=== PATIENT | male | born 1995 | race Caucasian/White ===

== ENCOUNTER 2021-05-08 14:18 | Inpatient (IN) | payer SELFPAY ==
[2021-05-08 14:31] VITALS: BP 133/89; PULSE 76; RESP 16; TEMP 36.9; O2SAT 97; BMI 25.7
--- NOTE | 2021-05-08 14:32 | ED_ITS ---
Documented by User: XIAO King 05/08/21 16:44 HPI - Psych General: Chief Complaint: Psychiatric Symptoms Stated Complaint: PSYCH EVAL Time Seen by Provider: 05/08/21 14:20 Source: patient and police Mode of arrival: other (police) Limitations: no limitations History of Present Illness: HPI Narrative: Patient is a 25-year-old male who presents to ED today after being brought by a precinct i police sergeant for concerns for suicidal ideation. bank compliance officer states he pulled patient over for speeding and he immediately fled. He eventually told the officer he wanted him to shoot him. He told the officer he was on his way to kill himself. During my examination patient has an extremely flat affect and stares at the ground during my entire exam. He tells me repeatedly that there is no reason to live. He states he had a plan to slit his wrists last night. He seems disinterested in any form of psychiatric help stating medications do not work and th erapy/counseling doesn't work because nobody actually fucking cares-they just get paid to act like they do . MD complaint: suicidal ideation Duration: constant History of same: Yes Relieving factors: none Exacerbating factors: none Associated psychiatric symptoms: depression and suicidal ideation Associated symptoms: Reports depression and suicidal ideation; Deny auditory hallucinations, visual hallucinations or homicidal ideation Treatments prior to arrival: placed on mental health hold (police filed affidavit ) If self harm: admits thoughts of self harm and has acted on plan Review of Systems Const: Denies: fever(s) or chills Card: Denies: chest pain, palpitations, lightheadedness or syncope Resp: Denies: dyspnea GI: Denies: abdominal pain, nausea, vomiting or diarrhea Skin/Breast: Denies: rash Neuro: Denies: headache(s) Psych: Reports: anxiety, depression, hopelessness, loss of interest and suicidal ideation; Denies: visual hallucinations, auditory hallucinations or homicidal ideation [facility] ED PFSH: Social History Smoking and tobacco status: current every day smoker cigarettes Packs smoked per day: 1 Alcohol intake: never Physical Exam Const: COMMON NORMALS: no acute distress and no limitations GENERAL APPEARANCE: cooperative ORIENTATION/CONSCIOUSNESS: Yes awake, Yes oriented to person, Yes oriented to place and Yes oriented to time Neuro: SENSORIUM/ORIENTATION: Yes oriented to person, Yes oriented to place and Yes oriented to time Psych: COMMON NORMALS: mental status grossly normal, cooperative, speech normal, denies hallucinations and denies homicidal ideation APPEARANCE: Yes grossly normal ATTITUDE: Yes evasive ACTIVITY/MOTOR BEHAVIOR: Yes Avoids eye contact (attititude/behavior) SPEECH: Yes normal speech MOOD & AFFECT: Yes depressed mood and Yes Other affect and mood findings present (extremely flat affect ) THOUGHT CONTENT: Yes Normal thought content present and Yes Suicidality present ATTENTION/CONCENTRATION: Yes attention grossly intact and Yes concentration grossly intact MEMORY/COGNITION: Yes memory grossly intact and Yes cognition grossly intact INSIGHT: Fair insight present (Psych) JUDGEMENT: Fair judgement present (Psych) Course Consultations: Consultation #1: Dr. Jeong-accepts admission Vital Signs: Vital signs: Vital Signs Temperature 98.9 F 05/08/21 19:26 Pulse Rate 71 05/08/21 19:26 Respiratory Rate 20 H 05/08/21 19:26 Blood Pressure 118/83 05/08/21 19:26 Pulse Oximetry 99 05/08/21 19:26 MDM - Psych Lab Data: Labs: Lab Results 05/08/21 05/08/21 Range/Units 14:54 14:54 WBC 14.6 H (4.0-10.0) 10^3/ uL RBC 6.19 H (4.1-5.3) 10^6/u L Hgb 18.2 H (11.7-16.6) g/dL Hct 53.8 H (42.0-52.0) % MCV 86.9 (80-94) fl MCH 29.4 (28.0-34.0) pg MCHC 33.8 (30.0-36.0) g/dL RDW 12.0 L (12.1-15.1) % Plt Count 304 (130-400) 10^3/c mm MPV 9.9 (7.4-10.4) fL Neut % (Auto) 80.8 % Lymph % (Auto) 13.4 % [place] % (Auto) 4.7 % Eos % (Auto) 0.5 % Baso % (Auto) 0.3 % Neut # (Auto) 11.74 H (1.8-7.7) 10^3/u L Lymph # (Auto) 2.0 (0.8-4.8) 10^3/u L [place] # (Auto) 0.7 (0.2-0.9) 10^3/u L Eos # (Auto) 0.1 (0.0-0.8) 10^3/u L Baso # (Auto) 0.1 (0.0-0.1) 10^3/u L Nucleated RBC % (a uto) 0 % Nucleated RBCs # 0.0 /100WBC Sodium 141 (136-145) mmol/L Potassium 4.2 (3.5-5.1) mmol/L Chloride 103 (98-107) mmol/L Carbon Dioxide 26 (22-29) mmol/L Anion Gap 16.2 (5-19) BUN 13 (6-20) mg/dL Creatinine 0.8 (0.7-1.2) mg/dL GFR Calculation 116.9 (90-130) mL/min Glucose 97 (65-115) mg/dL Calculated Osmolal ity 292 (285-295) mOsm/k g Calcium 9.8 (8.5-10.5) mg/dL Total Bilirubin 0.5 (0.15-1.2) mg/dL AST 22 (0-40) U/L ALT 33 (0-41) U/L Alkaline Phosphata se 87 (40-130) IU/L Total Protein 8.0 (6.6-8.7) g/dL Albumin 4.8 (3.5-5.2) g/dL Globulin 3.2 (1.3-4.6) g/dL Salicylates < 0.3 L (3-10) mg/dL Acetaminophen < 5.0 L (10-30) ug/mL Ethyl Alcohol < 10 (0-10) mg/dL Discharge Plan Discharge Patient Disposition: Admitted As Inpatient Admit Provider: Ed Jeong Clinical Impression: Suicidal ideations, Involuntary commitment Condition: Stable Coding Level of Care Code ED Engraver Picture for Chg Fwd Exam Expanded Problem Focused Documented by User: Angel Tillman MD 05/08/21 20:57 HPI - Psych General: Chief Complaint: Psychiatric Symptoms Stated Complaint: PSYCH EVAL Time Seen by Provider: 05/08/21 14:20 PFSH ED PFSH: Social History Smoking and tobacco status: current every day smoker cigarettes Packs smoked per day: 1 Alcohol intake: never Course Vital Signs: Vital signs: Vital Signs Temperature 98.9 F 05/08/21 19:26 Pulse Rate 71 05/08/21 19:26 Respiratory Rate 20 H 05/08/21 19:26 Blood Pressure 118/83 05/08/21 19:26 Pulse Oximetry 99 05/08/21 19:26 MDM - Psych Lab Data: Labs: Lab Results 05/08/21 05/08/21 Range/Units 14:54 14:54 WBC 14.6 H (4.0-10.0) 10^3/ uL RBC 6.19 H (4.1-5.3) 10^6/u L Hgb 18.2 H (11.7-16.6) g/dL Hct 53.8 H (42.0-52.0) % MCV 86.9 (80-94) fl MCH 29.4 (28.0-34.0) pg MCHC 33.8 (30.0-36.0) g/dL RDW 12.0 L (12.1-15.1) % Plt Count 304 (130-400) 10^3/c mm MPV 9.9 (7.4-10.4) fL Neut % (Auto) 80.8 % Lymph % (Auto) 13.4 % [place] % (Auto) 4.7 % Eos % (Auto) 0.5 % Baso % (Auto) 0.3 % Neut # (Auto) 11.74 H (1.8-7.7) 10^3/u L Lymph # (Auto) 2.0 (0.8-4.8) 10^3/u L [place] # (Auto) 0.7 (0.2-0.9) 10^3/u L Eos # (Auto) 0.1 (0.0-0.8) 10^3/u L Baso # (Auto) 0.1 (0.0-0.1) 10^3/u L Nucleated RBC % (a uto) 0 % Nucleated RBCs # 0.0 /100WBC Sodium 141 (136-145) mmol/L Potassium 4.2 (3.5-5.1) mmol/L Chloride 103 (98-107) mmol/L Carbon Dioxide 26 (22-29) mmol/L Anion Gap 16.2 (5-19) BUN 13 (6-20) mg/dL Creatinine 0.8 (0.7-1.2) mg/dL GFR Calculation 116.9 (90-130) mL/min Glucose 97 (65-115) mg/dL Calculated Osmolal ity 292 (285-295) mOsm/k g Calcium 9.8 (8.5-10.5) mg/dL Total Bilirubin 0.5 (0.15-1.2) mg/dL AST 22 (0-40) U/L ALT 33 (0-41) U/L Alkaline Phosphata se 87 (40-130) IU/L Total Protein 8.0 (6.6-8.7) g/dL Albumin 4.8 (3.5-5.2) g/dL Globulin 3.2 (1.3-4.6) g/dL Salicylates < 0.3 L (3-10) mg/dL Acetaminophen < 5.0 L (10-30) ug/mL Ethyl Alcohol < 10 (0-10) mg/dL Discharge Plan Discharge Patient Disposition: Admitted As Inpatient Admit Provider: Ed Jeong Clinical Impression: Suicidal ideations, Involuntary commitment Condition: Stable Coding Level of Care Code ED Engraver Picture for Chg Fwd Exam Expanded Problem Focused
[2021-05-08 14:41] VITALS: BP 137/67; PULSE 76; RESP 18; O2SAT 97
[2021-05-08 15:03] LABS: Basophils # 0.1 10^3/uL (0.0-0.1); Basophils % 0.3 %; Eosinophils # 0.1 10^3/uL (0.0-0.8); Eosinophils % 0.5 %; Hematocrit 53.8 % (42.0-52.0); Hemoglobin 18.2 g/dL (11.7-16.6); Lymphocytes % 13.4 %; Mean Corpuscular HGB Conc 33.8 g/dL (30.0-36.0); Mean Corpuscular Hemoglobin 29.4 pg (28.0-34.0); Mean Corpuscular Volume 86.9 fl (80-94); Mean Platelet Volume 9.9 fL (7.4-10.4); Monocytes # 0.7 10^3/uL (0.2-0.9); Monocytes % 4.7 %; Neutrophils # 11.74 10^3/uL (1.8-7.7); Neutrophils % 80.8 %; Nucleated Red Blood Cells % 0 %; Platelet Count 304 10^3/cmm (130-400); Red Blood Count 6.19 10^6/uL (4.1-5.3); White Blood Count 14.6 10^3/uL (4.0-10.0)
[2021-05-08 15:52] LABS: Alanine Aminotransferase 33 U/L (0-41); Albumin Level 4.8 g/dL (3.5-5.2); Alkaline Phosphatase 87 IU/L (40-130); Aspartate Amino Transferase 22 U/L (0-40); Blood Urea Nitrogen 13 mg/dL (6-20); Calcium 9.8 mg/dL (8.5-10.5); Carbon Dioxide 26 mmol/L (22-29); Chloride 103 mmol/L (98-107); Globulin 3.2 g/dL (1.3-4.6); Glomerular Filtration Rate 116.9 mL/min (90-130); Glucose 97 mg/dL (65-115); Osmolality Calculated 292 mOsm/kg (285-295); Sodium 141 mmol/L (136-145); Total Bilirubin 0.5 mg/dL (0.15-1.2)
[2021-05-08 16:08] LABS: Acetaminophen < 5.0 ug/mL (10-30); Alcohol Level < 10 mg/dL (0-10); Anion Gap 16.2 (5-19); Potassium 4.2 mmol/L (3.5-5.1); Salicylate < 0.3 mg/dL (3-10)
[2021-05-08 19:26] VITALS: BP 118/83; PULSE 71; RESP 20; TEMP 37.2; O2SAT 99
[2021-05-08] MEDS: acetaminophen 325 mg Tablet 650 MG PO (21:51)
[2021-05-08] MEDS: hyDROXYzine 25 mg Capsule 50 MG PO (21:51)
[2021-05-08] MEDS: trazodone 50 mg Tablet PO (21:51)
[2021-05-08 22:00] VITALS: BP 118/83; PULSE 71; RESP 20; TEMP 37.2; O2SAT 99
[2021-05-09 05:22] LABS: Basophils # 0.1 10^3/uL (0.0-0.1); Basophils % 0.7 %; Eosinophils # 0.3 10^3/uL (0.0-0.8); Eosinophils % 2.9 %; Hematocrit 52.2 % (42.0-52.0); Hemoglobin 17.4 g/dL (11.7-16.6); Lymphocytes # 3.8 10^3/uL (0.8-4.8); Lymphocytes % 40.1 %; Mean Corpuscular HGB Conc 33.3 g/dL (30.0-36.0); Mean Corpuscular Hemoglobin 29.9 pg (28.0-34.0); Mean Corpuscular Volume 89.7 fl (80-94); Mean Platelet Volume 10.4 fL (7.4-10.4); Monocytes # 0.7 10^3/uL (0.2-0.9); Monocytes % 7.2 %; Neutrophils # 4.63 10^3/uL (1.8-7.7); Neutrophils % 48.9 %; Nucleated Red Blood Cells % 0 %; Platelet Count 289 10^3/cmm (130-400); Red Blood Count 5.82 10^6/uL (4.1-5.3); Red Cell Distribution Width 12.3 % (12.1-15.1); White Blood Count 9.5 10^3/uL (4.0-10.0)
[2021-05-09 05:45] LABS: Alanine Aminotransferase 31 U/L (0-41); Albumin Level 4.3 g/dL (3.5-5.2); Alkaline Phosphatase 86 IU/L (40-130); Anion Gap 15.7 (5-19); Aspartate Amino Transferase 21 U/L (0-40); Blood Urea Nitrogen 14 mg/dL (6-20); Calcium 9.5 mg/dL (8.5-10.5); Carbon Dioxide 27 mmol/L (22-29); Chloride 102 mmol/L (98-107); Globulin 3.2 g/dL (1.3-4.6); Glomerular Filtration Rate 136.3 mL/min (90-130); Glucose 78 mg/dL (65-115); Osmolality Calculated 291 mOsm/kg (285-295); Potassium 3.7 mmol/L (3.5-5.1); Sodium 141 mmol/L (136-145); Total Bilirubin 0.9 mg/dL (0.15-1.2); Total Protein 7.5 g/dL (6.6-8.7)
[2021-05-09 05:57] VITALS: BP 101/67; PULSE 73; RESP 17; TEMP 36.4; O2SAT 96
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
[2021-05-09 10:34] LABS: Amphetamines Screen Urine Negative (Negative); Barbiturates Screen Urine Negative (Negative); Benzodiazepines Screen Urine Negative (Negative); Cocaine Screen Urine Negative (Negative); Opiate Screen Urine Negative (Negative); PCP Screen Urine Negative (Negative); THC Screen Urine Positive (Negative)
[2021-05-09 14:00] VITALS: BP 103/56; PULSE 72; RESP 16; TEMP 36.2; O2SAT 95
[2021-05-09] MEDS: nicotine 2 mg Gum BUCCAL (20:14)
[2021-05-09 21:04] VITALS: BP 128/87; PULSE 78; RESP 17; TEMP 37.1; O2SAT 98
[2021-05-09] MEDS: hyDROXYzine 25 mg Capsule 50 MG PO (21:30)
[2021-05-09] MEDS: acetaminophen 325 mg Tablet 650 MG PO (21:31)
[2021-05-09] MEDS: trazodone 50 mg Tablet PO (21:31)
[2021-05-10 06:00] VITALS: BP 96/63; PULSE 58; RESP 17; TEMP 37; O2SAT 98
[2021-05-10] MEDS: nicotine 21 mg Patch 1 PATCH TRANSDERMA (11:35)
[2021-05-10 14:00] VITALS: BP 122/72; PULSE 90; RESP 17; TEMP 36.9; O2SAT 99
[2021-05-10] MEDS: buPROPion XL (24 HR) 150 mg Tablet PO (14:27)
[2021-05-10] MEDS: nicotine 2 mg Gum BUCCAL (14:52)
--- NOTE | 2021-05-10 15:29 | PM.NPN ---
Subjective NPU Subjective: Interval history: Clyde presents today reporting that he has nothing to live for and being quite nihilistic as he discusses his relationship with his children and his parents. He endorsed that he has met a lot of his life prior to his and seems feeling him and then his got so he her and that has turned out poorly as well. He can identify one remaining quality in life in general stating you work until you so why not just skip the work. We discussed the risk benefits and alternatives of initiating Wellbutrin and he understood and agreed proceed as documented in this note. Mental Status Exam MSE Comments: This is a well-nourished, well-developed, white male, with a full rangel with hospital scrubs on with adequate grooming, but limited eye contact, never looking in this casualty underwriter?s direction, staring out the window, with no abnormal movement except for psychomotor retardation. Mostly cooperative with exam in mild distress. Speech was decreased rate and volume. Mood described as depressed; affect congruent and stoic. Thought process, organized. Thought content: patient endorsed suicidal ideation, but denied homicidal ideation, there were no delusions reported or noted, patient denied any auditory or visual hallucinations. Attention and concentration appeared intact, and memory was reliable, but none were formally tested. He is alert and oriented times three. Insight and judgment are limited. Impulse control is limited. Vitals/I&O/Wt Last Vital Signs Temp 98.4 F 05/10/21 14:00 Pulse 90 05/10/21 14:00 Resp 17 05/10/21 14:00 BP 122/72 05/10/21 14:00 Pulse Ox 99 05/10/21 14:00 Weight last 48 hrs Weight 90.718 kg Data NPU : 05/09/21 04:19 05/09/21 04:19 A&P Additional A&P Information (1) Suicidal ideations: (2) Involuntary commitment: (3) Adjustment disorder with mixed disturbance of emotions and conduct: (4) Partner relational problem: Additional A&P Information This is a 25-year-old, white male, with partner relational problems, adjustment disorder with mixed disturbance of emotion and conduct, depression, who presents grieving the ending of his marriage with significant suicidal thinking. RECOMMENDATION AND PLAN: 1. Continue current medication. Initiate Wellbutrin XL 150 mg p.o. every morning. 2. Encourage individual, group, and milieu therapy. 3. Continue q-15 minute checks for safety. Involuntary Hold Information 96 Hour Hold: 96 Hour Involuntary Admission: Yes 96 Hour Hold Ending Date: 05/14/21 96 Hour Hold Ending Time: 00:01 Attestations NPU Medical Necessity Statement*: Inpatient hospitalization is medically necessary and the clinically appropriate intervention, at this time. We will monitor medications and make changes as indicated. Likely length of stay is three to five days. Coding Level of Care Code Acute Exceptional Student Education Aide for Romulo Santos
[2021-05-10 22:00] VITALS: BP 132/79; PULSE 86; RESP 17; TEMP 37.1; O2SAT 98
[2021-05-10] MEDS: acetaminophen 325 mg Tablet 650 MG PO (22:51)
[2021-05-11 06:00] VITALS: BP 98/61; PULSE 64; RESP 15; TEMP 36.6; O2SAT 99
[2021-05-11] MEDS: buPROPion XL (24 HR) 150 mg Tablet PO (10:21)
--- NOTE | 2021-05-11 12:48 | NPU.GN ---
[facility] Unit Group Topic: Two True one False General Mood of Group: Patient refused group for today.
[2021-05-11 14:00] VITALS: BP 111/75; PULSE 64; RESP 16; TEMP 37.1; O2SAT 98
[2021-05-11] MEDS: nicotine 2 mg Gum BUCCAL (15:51)
--- NOTE | 2021-05-11 17:11 | P.PN_ITS ---
Subjective NPU Subjective: Interval history: Patient presents today reporting that the Wellbutrin might be working. He did report that he is not sure if he like the way his head felt initially. But he reports that he is not feeling suicidal so I guess that is better, he reports. He reports that he is eating and sleeping okay and denies any new or pressing issues. Mental Status Exam MSE Comments: This is a well-nourished, well-developed, white male, with a full rangel with hospital scrubs on with adequate grooming, but limited eye contact. No abnormal movements except for psychomotor retardation, which is slightly improved. Mostly cooperative with exam in no acute distress. Speech was decreased rate and volume. Mood described as depressed, but maybe less so; affect congruent and less stoic. Thought process, organized. Thought content: patient did not report suicidal ideation, and denied homicidal ideation, there were no delusions reported or noted, patient denied any auditory or visual hallucinations. Attention and concentration appeared intact, and memory was reliable, but none were formally tested. He is alert and oriented times three. Insight and judgment are limited. Impulse control is limited. Vitals/I&O/Wt Last Vital Signs Temp 97.9 F 05/11/21 21:38 Pulse 74 05/11/21 21:38 Resp 16 05/11/21 21:38 BP 137/90 05/11/21 21:38 Pulse Ox 97 05/11/21 21:38 Data NPU : 05/09/21 04:19 05/09/21 04:19 A&P Additional A&P Information (1) Suicidal ideations: (2) Involuntary commitment: (3) Adjustment disorder with mixed disturbance of emotions and conduct: (4) Partner relational problem: Additional A&P Information This is a 25-year-old, white male, with partner relational problems, adjustment disorder with mixed disturbance of emotion and conduct, depression, who presents grieving the ending of his marriage with significant suicidal thinking. RECOMMENDATION AND PLAN: 1. Continue current medication. 2. Encourage individual, group, and milieu therapy. 3. Continue q-15 minute checks for safety. Involuntary Hold Information 96 Hour Hold: 96 Hour Involuntary Admission: Yes 96 Hour Hold Ending Date: 05/14/21 96 Hour Hold Ending Time: 00:01 Attestations NPU Medical Necessity Statement*: Inpatient hospitalization is medically necessary and the clinically appropriate intervention, at this time. We will monitor medications and make changes as indicated. Likely need to stay 2 to 4 days. Coding Level of Care Code Acute Contact Lens Fitter for Romulo Santos
[2021-05-11] MEDS: acetaminophen 325 mg Tablet 650 MG PO (18:19)
[2021-05-11 21:38] VITALS: BP 137/90; PULSE 74; RESP 16; TEMP 36.6; O2SAT 97
[2021-05-11] MEDS: trazodone 50 mg Tablet PO (23:35)
[2021-05-11] MEDS: hyDROXYzine 25 mg Capsule 50 MG PO (23:35)
--- NOTE | 2021-05-11 23:40 | PC.NURSE ---
Trazodone 50mg PO given for sleep ; Vistaril 50mg PO given for anxiety.
[2021-05-12 06:00] VITALS: BP 137/90; PULSE 74; RESP 16; TEMP 36.6; O2SAT 97
[2021-05-12] MEDS: buPROPion XL (24 HR) 150 mg Tablet PO (09:13)
[2021-05-12] MEDS: nicotine 21 mg Patch 1 PATCH TRANSDERMA (11:46)
--- NOTE | 2021-05-12 12:01 | PC.RESP ---
SMOKING CESSATION INFORMATION SENT TO PATIENT.
[2021-05-12 14:00] VITALS: BP 119/78; PULSE 64; RESP 18; TEMP 37; O2SAT 97
--- NOTE | 2021-05-12 16:04 | P.PN_ITS ---
Subjective NPU Subjective: Interval history: Clyde presents today for the first time really engaging in a [id number] conversation about his situation. He did inquire about the possibility of increasing the Wellbutrin but we discussed the risk benefits and alternatives and that generally we will increase to the next dose is likely. He understood agreed to proceed as documented in this note. He was open to a very insight oriented therapeutic session which portends well for outpatient therapy. He still challenging with thoughts related to an [place] visual threat, but appears more rational and exploring it. Mental Status Exam MSE Comments: This is a well-nourished, well-developed, white male, with a full rangel with hospital scrubs on with adequate grooming, but limited eye contact. No abnormal movements except for psychomotor retardation, which is slightly improved. Mostly cooperative with exam in no acute distress. Speech was decreased rate and volume, but improving. Mood described as a little better; affect congruent and less stoic. Thought process, organized. Thought content: pretty agustin did not report suicidal ideation, and denied homicidal ideation, there were no delusions reported or noted, patient denied any auditory or visual hallucinations. Attention and concentration appeared intact, and memory was reliable, but none were formally tested. He is alert and oriented times three. Insight and judgment are improving. Impulse control is limited. Vitals/I&O/Wt Last Vital Signs Temp 97.9 F 05/12/21 06:00 Pulse 74 05/12/21 06:00 Resp 16 05/12/21 06:00 BP 137/90 05/12/21 06:00 Pulse Ox 97 05/12/21 06:00 Data NPU : 05/09/21 04:19 05/09/21 04:19 A&P Additional A&P Information (1) Suicidal ideations: (2) Involuntary commitment: (3) Adjustment disorder with mixed disturbance of emotions and conduct: (4) Partner relational problem: This is a 25-year-old, white male, with partner relational problems, adjustment disorder with mixed disturbance of emotion and conduct, depression, who presents grieving the ending of his marriage with significant suicidal thinking. RECOMMENDATION AND PLAN: 1. Continue current medication. 2. Encourage individual, group, and milieu therapy. 3. Continue q-15 minute checks for safety. Involuntary Hold Information 96 Hour Hold: 96 Hour Involuntary Admission: Yes 96 Hour Hold Ending Date: 05/14/21 96 Hour Hold Ending Time: 00:01 Attestations NPU Medical Necessity Statement*: Inpatient hospitalization is medically necessary and the clinically appropriate intervention, at this time. We will monitor medications and make changes as indicated. Likely need to stay 1-3 days. Coding Level of Care Code Acute Exhaust Emissions Inspector for Romulo Santos
[2021-05-12 20:20] VITALS: BP 111/68; PULSE 65; RESP 18; TEMP 36.4; O2SAT 96
[2021-05-12] MEDS: trazodone 50 mg Tablet PO (20:56)
[2021-05-12] MEDS: acetaminophen 325 mg Tablet 650 MG PO (20:56)
[2021-05-13 06:00] VITALS: BP 97/61; PULSE 56; RESP 17; TEMP 36.7; O2SAT 96
[2021-05-13] MEDS: buPROPion XL (24 HR) 150 mg Tablet PO (07:50)
[2021-05-13] MEDS: nicotine 21 mg Patch 1 PATCH TRANSDERMA (07:51)
--- NOTE | 2021-05-13 13:37 | NPU.GN ---
[facility] NeuroPsych Unit Group Topic:Communication General Mood of Group: The patient was on time to group and did participate. The patient was dressed appropriately and had good hygiene. The topic was communication. Communicating with doctors, family, friends and even authorities such as probation and parole officers. The patients were given a card a piece that asked two to three questions, for example, one was What words would you use to describe yourself? What words would others use to describe you? This opened everyone up to conversation. Every one participated and spoke with each other. We spoke about ways to speak with your doctor and ways to speak with social sciences chair to get the help that they need while they are in Neuro psych. The patient has a good understanding of communication at this time. This was the first time Clyde has attended group since his initial admission. He did participate and did well with others.
[2021-05-13 14:00] VITALS: BP 116/73; PULSE 78; RESP 18; TEMP 36.6; O2SAT 97
--- NOTE | 2021-05-13 18:33 | PM.NPN ---
Subjective NPU Subjective: Interval history: Patient presents today with continued improvement in self exploration around his suicidal and self-loathing thinking. He continues to report that the medication is helping but he has some hesitation about whether he will be able to translate this epiphany to outpatient success. He did agree to sign himself in to the hospital as a voluntary patient that we can continue to work and exploration of a safe discharge plan in the next 48 hours. Mental Status Exam MSE Comments: This is a well-nourished, well-developed, white male, with a full rangel with hospital scrubs on with adequate grooming, but limited eye contact. No abnormal movements except for psychomotor retardation, which is slightly improved. Mostly cooperative with exam in no acute distress. Speech was decreased rate and volume, but improving. Mood described as a little better; affect congruent and less stoic. Thought process, organized. Thought content: patient did not report suicidal ideation, and denied homicidal ideation, there were no delusions reported or noted, patient denied any auditory or visual hallucinations. Attention and concentration appeared intact, and memory was reliable, but none were formally tested. He is alert and oriented times three. Insight and judgment are improving. Impulse control is limited, but improving. Vitals/I&O/Wt Last Vital Signs Temp 98.4 F 05/13/21 22:00 Pulse 94 05/13/21 22:00 Resp 18 05/13/21 22:00 BP 154/84 05/13/21 22:00 Pulse Ox 98 05/13/21 22:00 Data NPU : 05/09/21 04:19 05/09/21 04:19 A&P Additional A&P Information (1) Suicidal ideations: (2) Involuntary commitment: (3) Adjustment disorder with mixed disturbance of emotions and conduct: (4) Partner relational problem: This is a 25-year-old, white male, with partner relational problems, adjustment disorder with mixed disturbance of emotion and conduct, depression, who presents grieving the ending of his marriage with significant suicidal thinking. RECOMMENDATION AND PLAN: 1. Continue current medication. 2. Encourage individual, group, and milieu therapy. 3. Continue q-15 minute checks for safety. 4. Work with treatment team for appropriate outpatient services. Involuntary Hold Information 96 Hour Hold: 96 Hour Involuntary Admission: Yes 96 Hour Hold Ending Date: 05/14/21 96 Hour Hold Ending Time: 00:01 Attestations NPU Medical Necessity Statement*: Inpatient hospitalization is medically necessary and the clinically appropriate intervention, at this time. We will monitor medications and make changes as indicated. Likely need to stay 1-2 days. Coding Level of Care Code Acute Applications Support Lead for Romulo Santos
[2021-05-13] MEDS: trazodone 50 mg Tablet PO (21:27)
[2021-05-13 22:00] VITALS: BP 154/84; PULSE 94; RESP 18; TEMP 36.9; O2SAT 98
[2021-05-13] MEDS: hyDROXYzine 25 mg Capsule 50 MG PO (23:27)
[2021-05-14 06:00] VITALS: BP 128/62; PULSE 76; RESP 17; TEMP 36.7; O2SAT 98
--- NOTE | 2021-05-14 06:46 | PM.NPN ---
Subjective NPU Subjective: Interval history: Patient presents today with continued improvement in self exploration around his suicidal and self-loathing thinking. He continues to report that the medication is helping but he has some hesitation about whether he will be able to translate this up if any to outpatient success. He did Vitals/I&O/Wt Last Vital Signs Temp 98.1 F 05/14/21 06:00 Pulse 76 05/14/21 06:00 Resp 17 05/14/21 06:00 BP 128/62 05/14/21 06:00 Pulse Ox 98 05/14/21 06:00 Data NPU : 05/09/21 04:19 05/09/21 04:19 Involuntary Hold Information 96 Hour Hold: 96 Hour Involuntary Admission: Yes 96 Hour Hold Ending Date: 05/14/21 96 Hour Hold Ending Time: 00:01 Coding Level of Care Code Acute Podiatric Medicine Professor for Romulo Santos
[2021-05-14] MEDS: nicotine 21 mg Patch 1 PATCH TRANSDERMA (10:27)
[2021-05-14] MEDS: buPROPion XL (24 HR) 150 mg Tablet PO (10:27)
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
[2021-05-14 12:06] VITALS: BP 128/62; PULSE 76; RESP 17; TEMP 36.7; O2SAT 98
== END 2021-05-14 15:08 | disposition home or self-care (01) | DRG 882 ==
LOC: ER 17:15 → NP 05-09 05:23
PROVIDERS: Emergency Medicine; Admitting Provider Psychiatry & Neurology Psychiatry; Emergency Provider Physician Assistant; Visit Provider Psychiatry & Neurology Psychiatry
DX: F43.25 Adjustment disorder with mixed disturbance of emotions and conduct (principal); R45.851 Suicidal ideations; F17.210 Nicotine dependence, cigarettes, uncomplicated; Z81.8 Family history of other mental and behavioral disorders; Z81.1 Family history of alcohol abuse and dependence; Z63.0 Problems in relationship with spouse or partner
CPT/HCPCS: 36415; 80053; 80306; 80307; 85025; 99285

== ENCOUNTER → 2023-05-09 10:09 | Outpatient (BNVA) | payer BC, SELFPAY | PROVIDERS: PCP Nurse Practitioner Family; Visit Provider Family Medicine | DX: F12.21 Cannabis dependence, in remission (principal); R10.9 Unspecified abdominal pain | CPT/HCPCS: 80307; 85025 ==

== ENCOUNTER → 2023-06-27 11:18 | Outpatient (BNVA) | payer OTHER, SELFPAY | PROVIDERS: PCP Nurse Practitioner Family; Visit Provider Nurse Practitioner | DX: Z79.899 Other long term (current) drug therapy (principal) | CPT/HCPCS: 80061; 83036 ==

== ENCOUNTER → 2024-01-15 14:16 | Outpatient (BNVA) | payer BC, SELFPAY | PROVIDERS: PCP Nurse Practitioner Family; Visit Provider Nurse Practitioner Family | DX: S80.869A Insect bite (nonvenomous), unspecified lower leg, initial encounter (principal); W57.XXXA Bitten or stung by nonvenomous insect and other nonvenomous arthropods, initial encounter; R21 Rash and other nonspecific skin eruption | CPT/HCPCS: 86160; 86618; 86666; 86668; 86757 ==

== ENCOUNTER → 2024-01-23 14:00 | Outpatient (BNVA) | payer BC, SELFPAY | PROVIDERS: PCP Nurse Practitioner Family; Visit Provider Nurse Practitioner Family | DX: S80.869A Insect bite (nonvenomous), unspecified lower leg, initial encounter (principal); W57.XXXA Bitten or stung by nonvenomous insect and other nonvenomous arthropods, initial encounter; R21 Rash and other nonspecific skin eruption | CPT/HCPCS: 86160; 86668 ==